=== PATIENT | female | born 1945 | race Two or more races ===

== ENCOUNTER → 2016-10-27 | Outpatient (CLI) | payer MEDICARE, OTHER ==
--- NOTE | 2016-10-27 19:24 | XCELERA REPORT ---
[address] [address] Transthoracic Echocardiogram Report Name: YOMI JARAMILLO Age: 70 yrs Gender: Female : 1945 Patient Status: Outpatient Patient Location: Study Date: 10/27/2016 10:15 AM Height: 62 in Weight: 168 lb BSA: 1.8 m2 Procedure: A complete two-dimensional transthoracic echocardiogram was performed (2D, M-mode, spectral and color flow Doppler). The study was technically difficult with many images being suboptimal in quality. Reason For Study: MURMUR Ordering Physician: SIMON OLIVIER Performed By: Massiel Poole Interpretation Summary The study was technically difficult with many images being suboptimal in quality. The left ventricular ejection fraction is normal. There is borderline concentric left ventricular hypertrophy. The left ventricle is grossly normal size. Doppler measurements suggest pseudonormalized left ventricular relaxation, which is associated with grade II/IV or mild to moderate diastolic dysfunction Not all wall segments were well visualized. Regional wall motion abnormalities cannot be excluded due to limited visualization. The right ventricular systolic function is normal. The left atrial size is normal. The right atrium is normal. There is a trace amount of mitral regurgitation There is no mitral valve stenosis. No aortic regurgitation is present. There is no aortic valve stenosis Tricuspid regurgitation jet envelope not well defined to measure RV systolic pressure accurately. There is a trace or physiologic amount of tricuspid regurgitation The aortic root is not well visualized. The inferior vena cava appeared normal and decreased > 50% with respiration (RAP 5-10 mmHg) Minimal pericardial effusion. MMode/2D Measurements \T\ Calculations RVDd: 2.4 cm LVIDd: 4.2 cm FS: 35.8 % Ao root diam: 2.6 cm IVSd: 1.0 cm LVIDs: 2.7 cm EDV(Teich): 77.5 ml LVPWd: 0.99 cmESV(Teich): 26.6 ml Ao root area: 5.5 cm2 EF(Teich): 65.8 % LA dimension: 3.1 cm LVOT diam: 2.0 cm LVOT area: 3.0 cm2 Doppler Measurements \T\ Calculations MV E max rhianna: MV P1/2t max rhianna: Ao V2 max: LV V1 max P.7 cm/sec 84.7 cm/sec 203.3 cm/sec 6.5 mmHg MV A max rhianna: MV P1/2t: 54.5 msec Ao max PG: LV V1 max: 89.8 cm/sec MVA(P1/2t): 4.0 cm2 16.5 mmHg 127.3 cm/sec MV E/A: 0.94 MV dec slope: KENDAL(V,D): 1.9 cm2 455.0 cm/sec2 PA V2 max: TR max rhianna: 74.0 cm/sec 238.9 cm/sec PA max PG: TR max P.8 mmHg 2.2 mmHg Left Ventricle The left ventricle is grossly normal size. There is borderline concentric left ventricular hypertrophy. The left ventricular ejection fraction is normal. Doppler measurements suggest pseudonormalized left ventricular relaxation, which is associated with grade II/IV or mild to moderate diastolic dysfunction. Not all wall segments were well visualized. Regional wall motion abnormalities cannot be excluded due to limited visualization. Right Ventricle The right ventricle is grossly normal size. The right ventricular systolic function is normal. Atria The right atrium is normal. The left atrial size is normal. Interarterial septum not well visualized and not well dopplered. Cannot comment on ASD/PFO presence. Mitral Valve The mitral valve leaflets are sclerotic, but show no functional abnormalities. There is no mitral valve stenosis. There is a trace amount of mitral regurgitation. Aortic Valve The aortic valve is not well visualized secondary to technical limitations. There is no aortic valve stenosis. No aortic regurgitation is present. Tricuspid Valve The tricuspid valve is not well visualized secondary to technical limitations. There is no tricuspid stenosis. There is a trace or physiologic amount of tricuspid regurgitation. Tricuspid regurgitation jet envelope not well defined to measure RV systolic pressure accurately. Pulmonic Valve The pulmonic valve is not well visualized. Great Vessels The aortic root is not well visualized. The inferior vena cava appeared normal and decreased > 50% with respiration (RAP 5-10 mmHg). Effusions Minimal pericardial effusion. : SIMON OLIVIER > Ace Yoo
== END ==
LOC: SP 10:04
PROVIDERS: ATTEND Family Medicine
DX: R01.1 Cardiac murmur, unspecified (principal)
CPT/HCPCS: 93306

== ENCOUNTER → 2016-11-01 | Outpatient (CLI) | payer MEDICARE, OTHER | LOC: WI 09:14 | PROVIDERS: ATTEND Family Medicine | DX: Z12.31 Encounter for screening mammogram for malignant neoplasm of breast (principal); M89.9 Disorder of bone, unspecified ==

== ENCOUNTER 2017-10-21 08:42 | Emergency (ER) | payer MEDICARE, OTHER ==
--- NOTE | 2017-10-21 09:12 | ER Document Report ---
ED Medical Screen (RME) - General Chief Complaint: S/S of Possible Stroke Stated Complaint: WEAKNESS Time Seen by Provider: 10/21/17 09:12 Notes: 71-year-old female patient to the emergency department chief complaint of falling to the right. 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 On Eliquis at this time as well. Has bruising to her eye. Redness to the eye. Weakness on the right side by report from the primary care doctor. Symptoms have been present on and off for several days. TRAVEL OUTSIDE OF THE [place] IN LAST 30 DAYS: No - HPI Onset/Duration: Gradual - Related Data Allergies/Adverse Reactions: No Known Allergies Allergy (Verified 10/21/17 08:45) Past Medical History - General Information source: Patient - Social History Cigarette use (# per day): No Lives with: Family - Past Medical History Cardiac Medical History: Reports: Hx Hypercholesterolemia, Hx Hypertension Past Surgical History: Reports: Hx Appendectomy, Hx Section - x2 Physical Exam - Vital signs Vitals: Temp Pulse Resp BP Pulse Ox 98.8 F 94 18 123/54 L 96 10/21/17 08:47 10/21/17 08:47 10/21/17 08:47 10/21/17 08:47 10/21/17 08:47 - HEENT Head: Normocephalic, Atraumatic Eyes: Other - Ecchymosis around the right eye with bruising. Small subconjunctival hemorrhage Pupils: PERRL - Respiratory Respiratory status: No respiratory distress Chest status: Nontender Breath sounds: Normal Chest palpation: Normal - Cardiovascular Rhythm: Regular Heart sounds: Normal auscultation Murmur: No - Back Back: Normal, Other - Tenderness to palpation of the right posterior rib cage with bruising noted. - Neurological Neuro grossly intact: Yes Cognition: Normal Orientation: AAOx4 Stephanie Coma Scale Eye Opening: Spontaneous [place] Coma Scale Verbal: Oriented Stephanie Coma Scale Motor: Obeys Commands Stephanie Coma Scale Total: 15 Speech: Normal Motor strength normal: LUE, LLE. 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 Labs and coags and reassess. I have greeted and performed a rapid initial assessment of this patient. A comprehensive ED assessment and evaluation of the patient, analysis of test results and completion of the medical decision making process will be conducted by additional ED providers. - Vital Signs Vital signs: Temp Pulse Resp BP Pulse Ox 98.8 F 94 18 123/54 L 96 10/21/17 08:47 10/21/17 08:47 10/21/17 08:47 10/21/17 08:47 10/21/17 08:47 Doctor's Discharge - Discharge Referrals: DARIEN OLIVIER MD [Primary Care Provider] - Follow up as needed
[2017-10-21 09:37] LABS: ABSOLUTE EOSINOPHILS # (AUTO) 0.1 10^3/uL (0.0-0.6); ABSOLUTE MONOCYTES (AUTO) 0.5 10^3/uL (0.1-1.4); BASOPHILS % (AUTO) 0.5 % (0-2); EOSINOPHILS % (AUTO) 1.7 % (0-6); HEMATOCRIT 27.7 % (36.0-47.0); HEMOGLOBIN 9.5 g/dL (12.0-15.5); LYMPHOCYTES % (AUTO) 11.7 % (13-45); MEAN CORPUSCULAR HEMOGLOBIN 33.2 pg (27.0-33.4); MEAN CORPUSCULAR HGB CONC 34.2 g/dL (32.0-36.0); MEAN CORPUSCULAR VOLUME 97 fl (80-97); MONOCYTES % (AUTO) 5.3 % (3-13); PLATELET COUNT 167 10^3/uL (150-450); RED BLOOD COUNT 2.85 10^6/uL (3.72-5.28); RED CELL DISTRIBUTION WIDTH 13.8 % (11.5-14.0); SEGMENTED NEUTROPHILS % (AUTO) 80.8 % (42-78); TOTAL CELLS COUNTED % (AUTO) 100 %; WHITE BLOOD COUNT 8.7 10^3/uL (4.0-10.5)
[2017-10-21 09:44] LABS: INTERNATIONAL RATION (INR) 1.51
[2017-10-21 09:45] LABS: PARTIAL THROMBOPLASTIN TIME 29.7 SEC (23.5-35.8)
--- NOTE | 2017-10-21 09:55 | RADIOLOGY REPORT (SQ) ---
EXAM DESCRIPTION: CT HEAD WITHOUT COMPLETED DATE/TIME: 10/21/2017 9:33 am REASON FOR STUDY: fall, right sided weakness COMPARISON: CT of the orbit 02/29/2016 TECHNIQUE: Axial images acquired through the brain without intravenous contrast. Images reviewed wi th bone, brain and subdural windows. Additional sagittal and coronal reconstructions were generated. Images stored on PACS. All CT scanners at this facility use dose modulation, iterative reconstruction, and/or weight based d osing when appropriate to reduce radiation dose to as low as reasonably achievable (ALARA). [facility]: Dose Right [facility]: CareDose [facility]: Dose Right [facility]: Teradose 4D [facility]: BooknGo RADIATION DOSE: CT Rad equipment meets quality standard of care and radiation dose reduction techniq ues were employed. CTDIvol: 53.2 mGy. DLP: 1097 mGy-cm. mGy. LIMITATIONS: Streak artifact from hair pins FINDINGS: VENTRICLES: Normal size and contour for age. CEREBRUM: No masses. No hemorrhage. No midline shift. No evidence for acute infarction. Moderate w ileana matter low attenuation in the bifrontal and biparietal regions from small vessel ischemic change . CEREBELLUM: No masses. No hemorrhage. No alteration of density. No evidence for acute infarction. EXTRAAXIAL SPACES: No fluid collections. No masses. ORBITS AND GLOBE: No intra- or extraconal masses. Normal contour of globe without masses. CALVARIUM: No fracture. PARANASAL SINUSES: No fluid or mucosal thickening. SOFT TISSUES: No mass or hematoma. OTHER: No other significant finding. IMPRESSION: No acute findings. Age-appropriate bifrontal and biparietal chronic small vessel ischem ic change. EVIDENCE OF ACUTE STROKE: NO. COMMENT: Quality ID # [id number]: Final reports with documentation of one or more dose reduction techniques (e.g., Automated exposure control, adjustment of the mA and/or kV according to patient size, use of iterative reconstruction technique) TECHNICAL DOCUMENTATION: JOB ID: [id number] [employer]- All Rights Reserved Reading location - IP/workstation name: [email or web address]
[2017-10-21 09:58] LABS: ALANINE AMINOTRANSFERASE 58 U/L (9-52); ALBUMIN 3.8 g/dL (3.5-5.0); ALKALINE PHOSPHATASE 53 U/L (38-126); ANION GAP 11 (5-19); ASPARTATE AMINO TRANSFERASE 38 U/L (14-36); BILIRUBIN,DIRECT 0.4 mg/dL (0.0-0.4); BILIRUBIN,TOTAL 0.8 mg/dL (0.2-1.3); BLOOD UREA NITROGEN 18 mg/dL (7-20); CALCIUM 9.5 mg/dL (8.4-10.2); CARBON DIOXIDE 24 mmol/L (22-30); CHLORIDE 107 mmol/L (98-107); GLUCOSE 88 mg/dL (75-110); POTASSIUM 4.2 mmol/L (3.6-5.0); SODIUM 141.8 mmol/L (137-145); TOTAL PROTEIN 6.7 g/dL (6.3-8.2)
--- NOTE | 2017-10-21 09:58 | RADIOLOGY REPORT (SQ) ---
EXAM DESCRIPTION: RIBS RIGHT W/PA CHEST COMPLETED DATE/TIME: 10/21/2017 9:48 am REASON FOR STUDY: fall, pain COMPARISON: None. TECHNIQUE: Frontal view of the chest and additional views of the right ribs acquired. NUMBER OF VIEWS: AP chest Right rib detail three views LIMITATIONS: None. FINDINGS: FRONTAL CXR: Minimal bibasilar bandlike atelectasis or scarring. Calcified granuloma left lower lobe, benign. No fluffy alveolar infiltrates worrisome for edema or pneumonia. No pneumothor ax. No pleural effusion. Cardiac silhouette size, rodolfo, bony structures are unremarkable. RIBS: No displaced rib fractures. No lytic or blastic bony lesions. OTHER: No other significant finding. IMPRESSION: NO PNEUMOTHORAX. NO DISPLACED RIB FRACTURES. COMMENT: SITE OF TRAUMA/COMPLAINT MARKED/STAMP COMPLETED: No TECHNICAL DOCUMENTATION: JOB ID: [id number] [employer]- All Rights Reserved Reading location - IP/workstation name: [email or web address]
--- NOTE | 2017-10-21 10:38 | ER Document Report ---
ED General - General Chief Complaint: S/S of Possible Stroke Stated Complaint: WEAKNESS Time Seen by Provider: 10/21/17 09:12 Notes: Patient was referred here this morning for us to evaluate her for possible stroke. She has had 3 or 4 episodes of falling since Tuesday. She seems to be weak on her right side and gets dizzy and has trouble with her balance when she tries to stand and walk. She is able to stand and walk with assistance, such as holding hands with her . Initially, patient's psychiatrist, Dr. Martinez, in [place] felt that her symptoms might be related to electrocardioversion therapy (ECT) that the patient is being given could be the cause of her symptoms. She has severe depression at times and many years ago ( 2004) had ECT treatments with some success. Because of her depression, and failure to respond to oral medications, a new course of treatment with ECT has been undertaken in the past 2 months. She has been receiving treatments on Mondays, Wednesdays, and . Yesterday's treatment was her 12th such treatment in the past 2 months. Her falling episodes have all occurred when her is not in the house to help her walk. She has bruises to the right side of her face from 1 of the falls and bruises in her right back and ribs from another of the falls. Patient denies any headaches. No history of strokes. Denies any chest pains. No history of any heart disease. Patient does have a history of a pulmonary embolus in June and is on Eliquis for anticoagulation. TRAVEL OUTSIDE OF THE [place] IN LAST 30 DAYS: No - Related Data Allergies/Adverse Reactions: No Known Allergies Allergy (Verified 10/21/17 08:45) Past Medical History - General Information source: Patient - Social History Smoking Status: Current Every Day Smoker Cigarette use (# per day): No Chew tobacco use (# tins/day): No Drug Abuse: None Lives with: Family Family History: Reviewed & Not Pertinent Patient has suicidal ideation: No Patient has homicidal ideation: No - Past Medical History Cardiac Medical History: Reports: Hx Hypercholesterolemia, Hx Hypertension Neurological Medical History: Denies: Hx Cerebrovascular Accident, Hx Seizures Endocrine Medical History: Denies: Hx Diabetes Mellitus Type 1, Hx Diabetes Mellitus Type 2 Psychiatric Medical History: Reports: Hx Bipolar Disorder, Hx Depression Past Surgical History: Reports: Hx Appendectomy, Hx Section - x2 Review of Systems - Review of Systems Notes: REVIEW OF SYSTEMS: CONSTITUTIONAL : Denies fever. EENT: Denies eye, ear, nose or mouth or throat pain or other symptoms. CARDIOVASCULAR: Denies chest pain. No symptoms of coronary artery disease. RESPIRATORY: Denies cough, chest congestion, or shortness of breath. GASTROINTESTINAL: Denies abdominal pain or nausea, vomiting, or diarrhea. GENITOURINARY: Denies difficulty or painful urinating, urinary frequency, blood in urine. MUSCULOSKELETAL: Denies back or neck pain. Denies joint pain or swelling. SKIN: Denies rash or skin lesions. NEUROLOGICAL: Denies LOC or altered mental status. Denies headache. Denies sensory loss or motor deficits. Patient does say that she has weakness of her right arm and right leg. ALL OTHER SYSTEMS REVIEWED AND NEGATIVE. Physical Exam - Vital signs Vitals: Temp Pulse Resp BP Pulse Ox 98.8 F 94 18 123/54 L 96 10/21/17 08:47 10/21/17 08:47 10/21/17 08:47 10/21/17 08:47 10/21/17 08:47 Interpretation: Normal - Notes Notes: PHYSICAL EXAMINATION: GENERAL: Well-appearing, in no acute distress. Vital signs are all normal. Patient talks in a slow, deliberate speech. When I asked the patient's if this was her normal speech, he said that it was, that she seemed to think about everything she is going to say before saying it. HEAD: Atraumatic, normocephalic. EYES: Pupils equal round and reactive to light, extraocular movements intact. No nystagmus. ENT: oropharynx clear without exudates. Moist mucous membranes. NECK: Normal range of motion, supple. No carotid bruits heard. LUNGS: Breath sounds clear and equal bilaterally. HEART: Regular rate and rhythm without murmurs. No irregular heart beat heard. ABDOMEN: Soft, nontender. No guarding or rebound. No masses. BACK: No tenderness throughout entire back. EXTREMITIES: Normal range of motion without pain. NEUROLOGICAL: Speech is slow and deliberate, but appropriate. With relatively little assistance, patient is able to stand at the bedside and walk to the wall and turned around and walked back with minimal assistance says it is just holding her hand. Normal sensory, motor, and reflex exams. Awake, alert, and oriented x3. Cranial nerves normal. PSYCH: Normal mood, normal affect. SKIN: Warm, dry, no rashes. Course - Re-evaluation Re-evalutation: 10/21/17 17:40 Patient's first troponin came back at 0.341. I have no explanation for this slightly elevated result. Patient does not have any symptoms suggestive of coronary artery disease. No chest pains, shortness of breath, excessive sweating, etc. Has never been told she has any heart trouble. Is not renal insufficient. Talked this over with the hospitalist soapstoner and agreed that I would repeat the test, which was done 3 hours later and it showed a slightly decreasing value for the troponin of 0.327. I do not think that the troponin values that I received are of clinical significance. Even if they were to suggest coronary insufficiency, patient is already on baby aspirin daily as well as Eliquis anticoagulation. There is not much else left to offer for this person if there is any coronary artery disease present. The finding of the stroke on the MRI is concerning, but the patient has had symptoms for 3 days now and they are not getting worse or any new findings during that 3 days. She is already on anticoagulation with Eliquis and also taking a baby aspirin daily so there is not much else to offer her. Consideration is given to carotid Dopplers and echocardiogram, but I do not think the patient needs to have them done as an inpatient. I have recommended a follow-up with their primary care provider, Dr. OLIVIER, Tuesday, to arrange to obtain any further workup they feel necessary. 10/21/17 17:54 I attempted to call Dr. Xiong myself at 2 different numbers provided to me by our operators. Both [phone] and [phone] did not answer. - Vital Signs Vital signs: Temp Pulse Resp BP Pulse Ox 98.4 F 94 21 H 136/74 H 96 10/21/17 14:05 10/21/17 12:21 10/21/17 14:05 10/21/17 14:05 10/21/17 14:05 - Laboratory Result Diagrams: 10/21/17 09:18 10/21/17 09:18 Laboratory results interpreted by me: 10/21/17 10/21/17 10/21/17 09:18 09:18 09:18 RBC 2.85 L Hgb 9.5 L Hct 27.7 L Seg Neutrophils % 80.8 H Lymphocytes % 11.7 L PT 19.0 H AST 38 H ALT 58 H 10/21/17 17:38 says patient is known to be anemic. - Diagnostic Test Radiology reviewed: Image reviewed, Reports reviewed - CT scan of the brain shows no acute process. No stroke seen. MRI of the brain shows a small area of acute left parietal lobe stroke. - EKG Interpretation by Me EKG shows normal: Sinus rhythm Rate: Normal Rhythm: NSR Discharge - Discharge Clinical Impression: Stroke Condition: Stable Disposition: HOME, SELF-CARE Additional Instructions: Stroke Stroke occurs when a blood vessel to the brain is blocked. Symptoms of stroke can include visual changes, confusion, difficulty with speech, and weakness or numbness of the face, arm, or leg. Some strokes are extremely serious, while others cause hardly any symptoms at all. Not all strokes require hospitalization. The symptoms of stroke usually improve with time. Physical therapy and exercise help you recover. To avoid further episodes, you may be placed on medication to slow blood clotting. This may include aspirin or sometimes other "blood thinning" medicine. Further evaluation is often necessary to see where the blood clots are originating. Call 911 or go to the nearest emergency room at once if you have any stroke symptoms. You should return if there is increasing confusion or inappropriate sleepiness, spreading areas of weakness, increasing headache, decreasing vision, or vomiting. Continue to take your Eliquis and your baby aspirin daily. Follow-up with your primary care provider, Dr. Olivier, next week. I recommend you call his office on Tuesday to advise him of your being here and what was found on your evaluation. He may wish to do a couple of other studies on your carotid arteries and heart to evaluate them more fully. Our rehabilitation caseworker has spoken with you about arranging for physical therapy evaluation. FOLLOW-UP CARE: If you have been referred to a physician for follow-up care, call the physician s office for an appointment as you were instructed or within the next two days. If you experience worsening or a significant change in your symptoms, notify the physician immediately or return to the Emergency Department at any time for re-evaluation. Referrals: DARIEN OLIVIER MD [Primary Care Provider] - Follow up in 3-5 days
--- NOTE | 2017-10-21 13:09 | RADIOLOGY REPORT (SQ) ---
EXAM DESCRIPTION: MRI HEAD WITHOUT COMPLETED DATE/TIME: 10/21/2017 12:51 pm REASON FOR STUDY: Right side, arm and leg weakness, falling COMPARISON: None. TECHNIQUE: Multiplanar imaging includes non-contrasted T1, T2, FLAIR, and diffusion with ADC map seq uences. Images stored on PACS. LIMITATIONS: None. FINDINGS: ANATOMY: No anomalies. Normal vascular flow voids. Pituitary fossa normal. CSF SPACES: Prominent ventricles. CEREBRUM: Mild cortical atrophy. Increased periventricular white matter signal on T2 and FLAIR imagi ng. POSTERIOR FOSSA: No signal alteration. No hemorrhage. No edema, masses or mass effect. Internal jerrod tory canals, cerebello-pontine angles, mastoids normal. DIFFUSION IMAGING: There is a small area of abnormal diffusion in the left parietal lobe superiorly. ORBITS: No masses. Globes normal. PARANASAL SINUSES: No fluid levels. Mucosa normal. OTHER: No other significant finding. IMPRESSION: Involutional changes of aging with chronic microvascular ischemia. Small acute left par ietal infarction. EVIDENCE OF ACUTE STROKE: YES. LEFT MCA COMMENT: Pertinent findings on the imaging study reported as a CRITICAL RESULT to LOVE GARCIA MD at13:04 on 10/21/2017. TECHNICAL DOCUMENTATION: JOB ID: [id number] [employer]- All Rights Reserved Reading location - IP/workstation name: [email or web address]
[2017-10-21 14:10] VITALS: BP 136/74
--- NOTE | 2017-10-21 18:19 | EKG REPORT ---
SEVERITY:- BORDERLINE ECG - SINUS RHYTHM PROBABLE LEFT ATRIAL ABNORMALITY : Confirmed by: Ace Yoo 21-Oct-2017 18:18:50
== END 2017-10-21 14:09 | disposition home or self-care (01) ==
LOC: ER 08:42
DX: I63.9 Cerebral infarction, unspecified (principal); R53.83 Other fatigue; Z79.02 Long term (current) use of antithrombotics/antiplatelets; Z79.82 Long term (current) use of aspirin; E78.00 Pure hypercholesterolemia, unspecified; I10 Essential (primary) hypertension
CPT/HCPCS: 36415; 70450; 70551; 80053; 84484; 85025; 85610; 85730; 93005; 93010; 99285

== ENCOUNTER 2017-11-30 03:19 | Emergency (ER) | payer OTHER, MEDICARE ==
[2017-11-30] MEDS ORDERED: ADENOSINE INJ/PF 6 MG/2 ML SDV IV ONE ×2 (03:26)
[2017-11-30] MEDS ORDERED: DILTIAZEM HCL INJ 25 MG/5 ML VIAL ONE (03:30)
[2017-11-30] MEDS ORDERED: FUROSEMIDE INJ/PF 40 MG/4 ML SDV IV ONE (03:38)
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
[2017-11-30 03:55] LABS: ABSOLUTE BASOPHILS # (AUTO) 0.1 10^3/uL (0.0-0.2); ABSOLUTE EOSINOPHILS # (AUTO) 0.5 10^3/uL (0.0-0.6); ABSOLUTE LYMPHOCYTES (AUTO) 2.7 10^3/uL (0.5-4.7); ABSOLUTE MONOCYTES (AUTO) 0.4 10^3/uL (0.1-1.4); ABSOLUTE NEUT (AUTO) 6.3 10^3/uL (1.7-8.2); BASOPHILS % (AUTO) 0.9 % (0-2); EOSINOPHILS % (AUTO) 5.2 % (0-6); HEMATOCRIT 32.5 % (36.0-47.0); HEMOGLOBIN 10.5 g/dL (12.0-15.5); LYMPHOCYTES % (AUTO) 27.1 % (13-45); MEAN CORPUSCULAR HEMOGLOBIN 31.6 pg (27.0-33.4); MEAN CORPUSCULAR HGB CONC 32.3 g/dL (32.0-36.0); MEAN CORPUSCULAR VOLUME 98 fl (80-97); MONOCYTES % (AUTO) 4.2 % (3-13); PLATELET COUNT 184 10^3/uL (150-450); RED BLOOD COUNT 3.32 10^6/uL (3.72-5.28); RED CELL DISTRIBUTION WIDTH 13.3 % (11.5-14.0); SEGMENTED NEUTROPHILS % (AUTO) 62.6 % (42-78); TOTAL CELLS COUNTED % (AUTO) 100 %; WHITE BLOOD COUNT 10.1 10^3/uL (4.0-10.5)
[2017-11-30 04:00] LABS: ALANINE AMINOTRANSFERASE 28 U/L (9-52); ALBUMIN 4.1 g/dL (3.5-5.0); ALKALINE PHOSPHATASE 58 U/L (38-126); ANION GAP 16 (5-19); ASPARTATE AMINO TRANSFERASE 56 U/L (14-36); BILIRUBIN,DIRECT 0.3 mg/dL (0.0-0.4); BILIRUBIN,TOTAL 0.7 mg/dL (0.2-1.3); BLOOD UREA NITROGEN 12 mg/dL (7-20); CARBON DIOXIDE 16 mmol/L (22-30); CHLORIDE 108 mmol/L (98-107); GLUCOSE 295 mg/dL (75-110); POTASSIUM 3.7 mmol/L (3.6-5.0); TOTAL PROTEIN 7.4 g/dL (6.3-8.2)
--- NOTE | 2017-11-30 04:02 | RADIOLOGY REPORT (SQ) ---
EXAM DESCRIPTION: XR CHEST 1 VIEW COMPLETED DATE/TME: 11/30/2017 03:38 CLINICAL HISTORY: 72 years Female, dyspnea COMPARISON: 8.3.18. NUMBER OF VIEWS/TECHNIQUE: 1/AP FINDINGS: Moderate lung volume, moderate patchy and streaky opacity bilateral lower lung barr, right more than left., normal cardiac silhouette, and intact bony thorax. IMPRESSION: Moderate bilateral lower lobar pneumonia. Recommend CR/CT surveillance including at 7-12 weeks following initiation of any clinically warranted therapy.
[2017-11-30 04:26] LABS: TROPONIN I 0.196 ng/mL
[2017-11-30] MEDS ORDERED: ENOXAPARIN SODIUM INJ 60 MG/0.6 ML DISP.SYRIN SUBCUT SCH ×2 (05:00→10:00)
[2017-11-30] MEDS ORDERED: HEPARIN SOD (PORCINE) 1,000 UNIT/ML 10 ML VIAL IV ONE (05:04)
[2017-11-30] MEDS ORDERED: HEPARIN SODIUM,PORCINE/D5W 25,000 UNIT/250 ML RTUINJ IV PRN (05:04)
[2017-11-30 05:21] LABS: APPEARANCE,URINE SLIGHTLY-CLOUDY; BILIRUBIN,URINE NEGATIVE (NEGATIVE); COLOR,URINE YELLOW; GLUCOSE, URINE 150 mg/dL (NEGATIVE); KETONES,URINE NEGATIVE (NEGATIVE); LEUKOCYTE ESTERASE,URINE NEGATIVE (NEGATIVE); NITRITE,URINE NEGATIVE (NEGATIVE); PROTEIN,URINE >=500 mg/dL (NEGATIVE); URINE SPECIFIC GRAVITY 1.012; UROBILINOGEN,URINE NEGATIVE mg/dL (<2.0)
[2017-11-30 05:51] LABS: INTERNATIONAL RATION (INR) 1.59; PROTHROMBIN TIME 19.8 SEC (11.4-15.4)
[2017-11-30 05:52] LABS: PARTIAL THROMBOPLASTIN TIME 32.4 SEC (23.5-35.8)
--- NOTE | 2017-11-30 08:28 | EKG REPORT ---
SEVERITY:- ABNORMAL ECG - BRADYCARDIA WITH ARTIFACTS. REC REPEAT EKG ANTERIOR AR OLD : Confirmed by: Ace Yoo 30-Nov-2017 08:28:01
--- NOTE | 2017-11-30 08:29 | EKG REPORT ---
SEVERITY:- ABNORMAL ECG - SINUS TACHYCARDIA ANTERIOR INFARCT, AGE INDETERMINATE NONSPECIFIC T ABNORMALITIES, INFERIOR LEADS : Confirmed by: Ace Yoo 30-Nov-2017 08:28:36
[2017-11-30] MEDS ORDERED: ASPIRIN 81 MG TABLET, CHEWABLE PO ONE (11:15)
[2017-11-30] MEDS ORDERED: INSULIN LISPRO 100 UNIT/ML 3 ML VIAL SUBCUT PRN (11:16)
[2017-11-30] MEDS ORDERED: GLUCAGON,HUMAN RECOMB 1 MG INJ IM PRN (11:16)
[2017-11-30] MEDS ORDERED: DEXTROSE 50%-WATER 25 GM/50 ML DISP.SYRIN IV PRN ×2 (11:16)
[2017-11-30] MEDS ORDERED: DEXTROSE 40% GEL 15 GM TUBE PO PRN ×2 (11:16)
[2017-11-30] MEDS ORDERED: MORPHINE SULFATE 10 MG/ML INJ IV PRN (11:20)
[2017-11-30] MEDS ORDERED: NITROGLYCERIN 0.4 MG/TAB 25 TAB/BOTTLE SL PRN (11:20)
[2017-11-30 11:34] LABS: ABSOLUTE LYMPHOCYTES (AUTO) 0.6 10^3/uL (0.5-4.7); ABSOLUTE MONOCYTES (AUTO) 0.5 10^3/uL (0.1-1.4); ABSOLUTE NEUT (AUTO) 10.6 10^3/uL (1.7-8.2); BASOPHILS % (AUTO) 0.3 % (0-2); EOSINOPHILS % (AUTO) 0.2 % (0-6); HEMATOCRIT 30.2 % (36.0-47.0); HEMOGLOBIN 9.8 g/dL (12.0-15.5); LYMPHOCYTES % (AUTO) 5.2 % (13-45); MEAN CORPUSCULAR HEMOGLOBIN 30.7 pg (27.0-33.4); MEAN CORPUSCULAR HGB CONC 32.5 g/dL (32.0-36.0); MEAN CORPUSCULAR VOLUME 95 fl (80-97); PLATELET COUNT 131 10^3/uL (150-450); RED CELL DISTRIBUTION WIDTH 13.1 % (11.5-14.0); SEGMENTED NEUTROPHILS % (AUTO) 90.3 % (42-78); TOTAL CELLS COUNTED % (AUTO) 100 %; WHITE BLOOD COUNT 11.8 10^3/uL (4.0-10.5)
[2017-11-30] MEDS ORDERED: ALPRAZOLAM 0.5 MG TABLET PO SCH (11:45)
[2017-11-30 11:51] LABS: CREATINE KINASE MB 17.3 ng/mL (<4.55); TROPONIN I 3.54 ng/mL
[2017-11-30] MEDS ORDERED: LANSOPRAZOLE 30 MG TAB.RAP.DR PO SCH (12:00)
[2017-11-30] MEDS ORDERED: ESCITALOPRAM OXALATE 10 MG TABLET PO SCH (12:00)
[2017-11-30] MEDS ORDERED: NORMAL SALINE 1000 ML 500 ML IV ONE (12:19)
[2017-11-30] MEDS ORDERED: NORMAL SALINE 1000 ML 1,000 ML IV PRN (12:19)
[2017-11-30] MEDS ORDERED: ACETAMINOPHEN 325 MG TABLET ONE (12:31)
[2017-11-30] MEDS: ACETAMINOPHEN 325 MG TABLET PO PRN ×2 (12:35→20:41)
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
[2017-11-30] MEDS: ALPRAZOLAM 0.5 MG TABLET PO SCH (14:16)
--- NOTE | 2017-11-30 15:08 | RADIOLOGY REPORT (SQ) ---
EXAM DESCRIPTION: CTA CHEST COMPLETED DATE/TIME: 11/30/2017 2:48 pm REASON FOR STUDY: dyspnea, hypoxia, nstemi; ?PE COMPARISON: Chest x-ray dated 11/30/2017 TECHNIQUE: CT scan of the chest performed using helical scanning technique with dynamic intravenous contrast injection. Images reviewed with lung, soft tissue and bone windows. Reconstructed coronal and sagittal MPR images reviewed. Additional 3 dimensional post-processing performed to develop Maximal Intensity Projection images (WA P). All images stored on PACS. All CT scanners at this facility use dose modulation, iterative reconstruction, and/or weight based d osing when appropriate to reduce radiation dose to as low as reasonably achievable (ALARA). [facility]: Dose Right [facility]: CareDose [facility]: Dose Right [facility]: Teradose 4D [facility]: SquadMail CONTRAST TYPE AND DOSE: contrast/concentration: Isovue 350.00 mg/ml; Total Contrast Delivered: 63.0 ml; Total Saline Delivered: 90.0 ml Contrast bolus optimized for the pulmonary arteries. Not diagnostic for the aorta. RENAL FUNCTION: Creatinine 0.99 RADIATION DOSE: CT Rad equipment meets quality standard of care and radiation dose reduction techniq ues were employed. CTDIvol: 17.3 - 19.8 mGy. DLP: 608 mGy-cm. . LIMITATIONS: None. FINDINGS: LUNGS AND PLEURA: A moderate size right and small left pleural effusions are identified. There is some minimal associated airspace consolidation in the lung bases most consistent with atelec tatic changes although I cannot exclude pneumonic consolidations. No pneumothorax is seen AORTA AND GREAT VESSELS: No aneurysm. Contrast bolus not optimized for the aorta. HEART: No pericardial effusion. No significant coronary artery calcifications. PULMONARY ARTERIES: No emboli visualized in the main pulmonary arteries or the segmental branches. HILAR AND MEDIASTINAL STRUCTURES: There are enlarged mediastinal, subcarinal, and right hilar lymph n odes. HARDWARE: None in the chest. UPPER ABDOMEN: No significant findings. Limited exam. THYROID AND OTHER SOFT TISSUES: No masses. No adenopathy. BONES: No acute or significant finding. 3D MIPS: Confirm above findings. OTHER: No other significant finding. IMPRESSION: No evidence for pulmonary embolic disease. There is a moderate size right and small lef t pleural effusions. There is some minimal associated airspace consolidation in the lung bases most consistent with atelectatic changes although I cannot exclude pneumonic consolidations. There is med iastinal subcarinal and right hilar adenopathy. Other findings as noted above COMMENT: Quality ID # [id number]: Final reports with documentation of one or more dose reduction techniques (e.g., Automated exposure control, adjustment of the mA and/or kV according to patient size, use of iterative reconstruction technique) TECHNICAL DOCUMENTATION: JOB ID: [id number] [employer]- All Rights Reserved Reading location - IP/workstation name: [email or web address]
[2017-11-30] MEDS ORDERED: FENOFIBRATE NANOCRYSTALLIZED 145 MG TABLET PO SCH (18:00)
[2017-11-30] MEDS ORDERED: ATORVASTATIN CALCIUM 40 MG TABLET PO SCH (18:00)
--- NOTE | 2017-11-30 18:28 | EKG REPORT ---
SEVERITY:- ABNORMAL ECG - SINUS TACHYCARDIA PROBABLE LEFT ATRIAL ABNORMALITY ANTERIOR INFARCT, AGE INDETERMINATE NONSPECIFIC T ABNORMALITIES, INFERIOR LEADS : Confirmed by: Ace Yoo 30-Nov-2017 18:28:10
[2017-12-01] MEDS: ALPRAZOLAM 0.5 MG TABLET PO SCH (01:11)
[2017-12-01 02:37] LABS: HEMATOCRIT 28.2 % (36.0-47.0); HEMOGLOBIN 9.3 g/dL (12.0-15.5); MEAN CORPUSCULAR HGB CONC 32.9 g/dL (32.0-36.0); MEAN CORPUSCULAR VOLUME 94 fl (80-97); PLATELET COUNT 126 10^3/uL (150-450); RED BLOOD COUNT 2.99 10^6/uL (3.72-5.28); RED CELL DISTRIBUTION WIDTH 13.3 % (11.5-14.0); WHITE BLOOD COUNT 8.8 10^3/uL (4.0-10.5)
[2017-12-01 03:09] LABS: ANION GAP 9 (5-19); BLOOD UREA NITROGEN 10 mg/dL (7-20); CALCIUM 8.9 mg/dL (8.4-10.2); CARBON DIOXIDE 22 mmol/L (22-30); CHLORIDE 107 mmol/L (98-107); GLUCOSE 101 mg/dL (75-110); POTASSIUM 3.6 mmol/L (3.6-5.0); SODIUM 138.3 mmol/L (137-145)
[2017-12-01 04:00] VITALS: BP 133/75
[2017-12-01] MEDS ORDERED: ARIPIPRAZOLE 5 MG TABLET PO SCH (10:00)
[2017-12-01] MEDS ORDERED: ASPIRIN 81 MG TABLET, CHEWABLE PO SCH (10:00)
== END 2017-12-01 04:25 | disposition other institution (70) ==
LOC: ER 03:19
DX: I21.4 Non-ST elevation (NSTEMI) myocardial infarction (principal); J81.0 Acute pulmonary edema; R79.89 Other specified abnormal findings of blood chemistry; R06.02 Shortness of breath; R06.00 Dyspnea, unspecified; I50.9 Heart failure, unspecified; Z87.891 Personal history of nicotine dependence; I10 Essential (primary) hypertension
CPT/HCPCS: 93005; 99285; 51702; 96375; 96365; 96366; 36415; 82553; 85025; 85027; 85610; 85730; 80048; 80053; 81001; 84484; 83880; 71045; 71275; 93010; 94660 ×2; J1644 ×2; J1940; J3490; J0153